=== PATIENT | female | born 1940 | race Caucasian/White ===

== ENCOUNTER 2016-07-05 09:49 | Day surgery (SDC) | payer MEDICARE, OTHER ==
[2016-07-05] MEDS ORDERED: IV START KIT ONE (10:37)
[2016-07-05] MEDS ORDERED: LACTATED RINGERS 1,000 ML ONE (10:37)
[2016-07-05] MEDS ORDERED: CEFAZOLIN SODIUM 2 GRAM PREMIX 100 ML IV ONE (10:38)
[2016-07-05] MEDS ORDERED: CEFAZOLIN SODIUM 2 GRAM PREMIX 100 ML IV PRN (11:00)
[2016-07-05] MEDS ORDERED: GENTAMICIN SULFATE 320 MG in SODIUM CHLORIDE 0.9% 100 ML IV PRN (11:00)
[2016-07-05] MEDS ORDERED: METRONIDAZOLE 20 APPLIC/70 G TUBE ONE (12:44)
[2016-07-05] MEDS ORDERED: LIDOCAINE 0.5%/EPI 1:200,000 (MULTIDOSE) 50 ML VIAL ONE (12:45)
[2016-07-05] MEDS ORDERED: SODIUM CHLORIDE 0.9% 100 ML ONE (12:45)
[2016-07-05] MEDS ORDERED: ESTROGENS,CONJUGATED CREAM 30 G/TUBE VG ONE (12:45)
[2016-07-05] MEDS ORDERED: BUPIVACAINE 0.5% (PRES FREE) 30 ML VIAL ONE (12:45)
[2016-07-05] MEDS ORDERED: BUPIVACAINE 0.75% SPINAL AMPUL 2 ML ONE (12:52)
[2016-07-05] MEDS ORDERED: SPINAL PROCEDURAL TRAY 1 EACH ONE (12:52)
[2016-07-05] MEDS ORDERED: FENTANYL 100 MCG/2 ML VIAL ONE (12:53)
[2016-07-05] MEDS ORDERED: OPIUM/BELLADONNA ALKALOIDS 1 EACH SUP PR ONE (12:53)
[2016-07-05] MEDS ORDERED: NEOMY SULF/POLYMYXIN B SULFATE 1 ML AMP IR ONE (12:53)
[2016-07-05] MEDS ORDERED: MIDAZOLAM HCL 5 MG/5 ML VIAL ONE ×3 (12:53→13:26)
[2016-07-05] MEDS ORDERED: FLUCONAZOLE IV ONE (13:17)
[2016-07-05] MEDS ORDERED: WATER IV ONE (13:17)
[2016-07-05] MEDS ORDERED: HYDRALAZINE HCL 20 MG/1 ML VIAL IV PRN (13:36)
[2016-07-05] MEDS ORDERED: PROMETHAZINE HCL 25 MG/ML VIAL IM PRN (13:36)
[2016-07-05] MEDS ORDERED: ONDANSETRON 4 MG/2ML 2 ML VIAL IV PRN ×2 (13:36→15:08)
[2016-07-05] MEDS ORDERED: MEPERIDINE 25 MG/ML SYRINGE IV PRN (13:36)
[2016-07-05] MEDS ORDERED: NALOXONE HCL 0.4 MG/ML VIAL IV PRN (13:36)
[2016-07-05] MEDS ORDERED: MORPHINE SULFATE 4 MG/ML SYRINGE IV PRN (13:36)
[2016-07-05] MEDS ORDERED: ATROPINE SULFATE 0.4 MG/1 ML VIAL IV PRN (13:36)
[2016-07-05] MEDS ORDERED: LACTATED RINGERS 1,000 ML IV SCH (13:45)
[2016-07-05] MEDS ORDERED: MORPHINE SULFATE 2 MG/ML SYRINGE IV PRN (15:08)
[2016-07-05] MEDS ORDERED: HYDROCODONE/ACETAMINOPHEN 5/325MG TABLET PO PRN (15:08)
--- NOTE | 2016-07-05 16:23 | OP ---
ROSALAB PAREKH [id number] DATE OF OPERATION: July 05, 2016 SURGEON: Cornelius Madrigal M.D. MACHINE CAGE MAKER: Maylin Beaulieu ANESTHESIA: Spinal. PREOPERATIVE DIAGNOSES: 1. Female stress urinary incontinence due to intrinsic sphincter deficiency. 2. Secondary detrusor overactivity with urgency. POSTOPERATIVE DIAGNOSES: 1. Female stress urinary incontinence due to intrinsic sphincter deficiency. 2. Secondary detrusor overactivity with urgency. PROCEDURE: 1. CYSTOSCOPY. 2. TROCAR SUPRAPUBIC CYSTOSTOMY TUBE PLACEMENT. 3. PUBOVAGINAL SLING. SPECIMENS: None. INDICATIONS: A 75-year-old woman with a greater than 40 year history of stress incontinence presented with increasing urge symptoms. She at one time was using very high doses of oxybutynin. Cystoscopy found only a small benign posterior wall lesion. Urodynamic studies, however, demonstrated marked stress incontinence on the basis of advanced intrinsic sphincter deficiency, essentially appearing as an open funnel bladder neck at rest. She had compensatory increased activity of the rhabdosphincter with some minimal voiding dysfunction associated with that. Detrusor overactivity seemed to occur at comparatively high volumes only. At this point, she has elected surgical intervention. FINDINGS: The vaginal area and urethra were relatively recessed due to marked obesity. No cystocele. Cystoscopically bladder neck was opened at rest. There was a small amount of squamous metaplasia of the trigone. Ureteral orifices were normally disposed. No focal bladder lesions were identified. At the end of the case we could see a significant extrinsic lift and compression on the mid and proximal urethra without completely occluding the bladder neck region. PROCEDURE: The patient was identified and brought to the operating room where spinal anesthetic was applied, and she was placed in the dorsal lithotomy position. The lower abdomen, genitalia and vagina were prepped and draped sterilely. We began by marking a site 2 cm above the pubic brim in the midline and treating this with 0.5% Marcaine and opening with a stab incision. We also made a line of incision with a marker essential at the level of the pubis itself, and anesthetized this with 0.5% Marcaine. Next, cystoscopy was performed with a 17 [place] scope using water as an irrigant. Findings are reported above. We had to compress around the urethra against the scope to adequately distend the bladder which we did through the scope as we placed the patient in Trendelenburg position. We then used a Bard 12 [place] trocar suprapubic tube system to access the high anterior wall of the bladder under direct vision. The trocar and stylet were removed and the balloon was inflated and seated against the bladder. It was allowed to drain throughout the case and ultimately secured at the level of the skin with #2-0 nylon. Cystoscope was then withdrawn and a posterior weighted speculum was inserted followed by a [place] retractor for labial retraction. We anesthetized the suburethral tissues with 0.5% lidocaine with epinephrine and then opened a vertical incision at the mid urethra and back toward the bladder neck. Tunnels were created outward toward the pubis on each side. Once the position was secured especially in relation to the bladder neck, we packed the vagina with gauze and turned our attention suprapubically. A transverse incision was made sharply in the previously marked and anesthetized site at the level of the pubis, with a distance of approximately 4 to 5 cm. We dissected through the subcutaneous adipose down through the superficial fascia down to the deeper fascia. We then turned to a Stamey type needle which starting on the left side, we passed through the fascia just above the pubic brim and then directed it down so that the tips traveled along the posterior aspect of the pubis downward into the pelvis, meeting a finger that was in the left-sided tunnel dissected periurethrally. We perforated the pelvic floor and delivered the needle tips into the wound. Next, a Xenform graft of 4 x 6 cm was cut in half longitudinally, and then soaked in saline. We secured the edges with a helical suture of #2-0 Prolene. The two ends of the Prolene suture on one end were then threaded through the Stamey needle tips and delivered retropubically and secured with a hemostat. We repeated the Stamey needle procedure on the right side and delivered the opposite side of the graft Prolene extensions in to the suprapubic site. We then tensioned the graft with a sound in the urethra and secured the leading edge into the midline with #2-0 Vicryl. With the graft resting in good position, we irrigated with genitourinary irrigant and closed the vaginal wound with #2-0 Vicryl suture. Cystoscopy was then performed and demonstrated no evidence of perforation of the urethra or bladder aside from the suprapubic tube. We left the cystoscope in place as we secured the left-sided Prolene tie suprapubically, then, very carefully observing with the cystoscope, we secured the right-sided suture sufficiently to exert some visual lift on the proximal urethra without entirely closing the bladder neck region. That completed, we removed the cystoscope and checked the position of the urethra with a sound. Finding no inordinate distraction of the urethra excessively in a retropubic direction, we packed the vagina with gauze containing Flagyl gel after applying estrogen cream to the suture line. Suprapubically, the wound was closed at the level of the superficial fascia with interrupted #2-0 Vicryl sutures followed by #3-0 Vicryl running subcuticular suture underneath Benzoin and SteriStrips in an I pad dressing. The suprapubic tube was secured with #2-0 nylon and left to gravity drainage. Estimated blood loss around 70 mL. No early complications. Patient tolerated the procedure well and was taken in stable condition to the post anesthesia room. cc: Cornelius Madrigal M.D. Malinda Coyle M.D.
[2016-07-05] MEDS ORDERED: HYDROCODONE/ACETAMINOPHEN 5/325MG TABLET ONE (16:31)
== END 2016-07-05 17:28 | disposition home or self-care (01) ==
LOC: SDC 09:49
PROVIDERS: ATTEND Urology
DX: N39.46 Mixed incontinence (principal); N36.42 Intrinsic sphincter deficiency (ISD); N32.81 Overactive bladder; E03.9 Hypothyroidism, unspecified; Z87.891 Personal history of nicotine dependence
CPT/HCPCS: 51040; 57288; J1450; J3010; J1580; A9270 ×4; J2250 ×3; J7120; J7050; J0690